=== PATIENT | male | born 1975 ===

== ENCOUNTER 2016-07-19 11:41 | Emergency (ER) | payer MEDICARE ==
[2016-07-19 11:58] VITALS: BP 117/80
[2016-07-19] MEDS ORDERED: TORADOL IM ONE (14:30)
--- NOTE | 2016-07-19 14:35 | Emergency Department Report ---
ED Back Pain/Injury HPI - General Chief Complaint: Back Pain/Injury Stated Complaint: BACK PAIN Time Seen by Provider: 07/19/16 14:09 Source: patient Limitations: No Limitations - History of Present Illness Initial Comments: PT reports chronic back pain since injury at work in 2005. PT states he fell off of a tractor trailer in 2005 and he has 4 bulging discs. PT states he sued his company and they are paying him not to work. PT states he sustained a head injury, wrist injury and ankle injury from fall. 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 PT states he wants the injection that he got at [place] - he does not know what the injection was. PT has taken oxycodone 7.5 mg for this MD Complaint: back pain -: Gradual, days(s) (2-3 days ) Similar Symptoms Previously: Yes Place: home Radiation: none Severity scale (0 -10): 10 Quality: sharp, other (pressure) Worsens With: movement Context: other (pt states the other day he had to glue his rear view mirror back on in his car and he was sitting in an uncomfortable position. he thinks this may have caused his back pain to worsen. ) Associated Symptoms: denies: chest pain, difficulty urinating Treatments Prior to Arrival: prescription analgesics - Related Data Allergies Allergy/AdvReac Type Severity Reaction Status Date / Time amoxicillin Allergy Unknown Verified 07/19/16 12:00 sulfamethoxazole Allergy Unknown Verified 07/19/16 12:00 [From Bactrim] trimethoprim [From Bactrim] Allergy Unknown Verified 07/19/16 12:00 ED Review of Systems ROS: Stated complaint: BACK PAIN Other details as noted in HPI Gastrointestinal: denies: abdominal pain Genitourinary: other (denies incontinence ). denies: as per HPI Musculoskeletal: as per HPI, back pain ED Past Medical Hx - Past Medical History Additional medical history: CHRONIC BACK AND LEFT ANKLE PAIN. GLAUCOMA - Surgical History Additional Surgical History: LEFT ANKLE - Social History Smoking Status: Current Every Day Smoker Substance Use Type: Prescribed ED Physical Exam - General Limitations: No Limitations General appearance: alert, in no apparent distress - Head Head exam: Present: atraumatic, normocephalic - Eye Eye exam: Present: normal appearance Pupils: Present: normal accommodation - ENT ENT exam: Present: normal exam - Neck Neck exam: Present: normal inspection, full ROM. Absent: tenderness - Respiratory Respiratory exam: Present: normal lung sounds bilaterally. Absent: respiratory distress, chest wall tenderness - Cardiovascular Cardiovascular Exam: Present: regular rate, normal rhythm, normal heart sounds - GI/Abdominal GI/Abdominal exam: Present: soft. Absent: tenderness - Rectal Rectal exam: Present: deferred - Extremities Exam Extremities exam: Present: normal inspection - Back Exam Back exam: Present: normal inspection, muscle spasm, paraspinal tenderness. Absent: CVA tenderness (R), CVA tenderness (L), vertebral tenderness - Neurological Exam Neurological exam: Present: alert, oriented X3 - Psychiatric Psychiatric exam: Present: normal affect - Skin Skin exam: Present: warm ED Course Vital Signs 07/19/16 11:54 Temperature 97.7 F Pulse Rate 82 Respiratory 18 Rate Blood Pressure 117/80 O2 Sat by Pulse 98 Oximetry - Reevaluation(s) Reevaluation #1: 07/19/16 14:37 PT aware we will treat him with Solu-Medrol and Toradol while he is in ED and then dc with steroid dose pack. PT aware he will need to follow up with PCP. - Pulse Oximetry Interpretation Digit-Finger Initial Pulse Oximetry Readin Actions Taken: none ED Medical Decision Making - Differential Diagnosis chronic back pain Critical care attestation.: If time is entered above; I have spent that time in minutes in the direct care of this critically ill patient, excluding procedure time. ED Disposition Clinical Impression: Acute exacerbation of chronic low back pain Disposition: DISCHARGED TO HOME OR SELFCARE Is pt being admited?: No Does the pt Need Aspirin: No Condition: Stable Instructions: Low Back Strain (ED), Chronic Back Pain (ED) Additional Instructions: Follow up with your pain management doctor's office this week Referrals: PRIMARY CARE [Primary Care Provider] - 3-5 Days Time of Disposition: 14:39
== END 2016-07-19 14:55 | disposition home or self-care (01) ==
LOC: ED 11:41
DX: M54.5 Low back pain (principal); G89.29 Other chronic pain; F17.200 Nicotine dependence, unspecified, uncomplicated; Z88.2 Allergy status to sulfonamides; Z88.1 Allergy status to other antibiotic agents; Z88.8 Allergy status to other drugs, medicaments and biological substances
CPT/HCPCS: 96372; 99282; J1885; J2930